=== PATIENT | male | born 1950 | race Hispanic/Latino ===

== ENCOUNTER 2020-09-03 08:35 | Inpatient (IN) | payer OTHER ==
[2020-09-03] VITALS (8 sets, daily range): BP systolic 122–138; BP diastolic 77–89
[~2020-09-03] VITALS: Ht 167.6 cm; Wt 68.9 kg
[2020-09-03] MEDS ORDERED: ASPIRIN 325 MG TABLET ONE (09:01)
[2020-09-03 09:41] LABS: BASOPHILS % (AUTO) 0.2 % (0.0-5.0); EOSINOPHILS % (AUTO) 1.8 % (0.0-8.0); HEMATOCRIT 40.9 % (42-54); LYMPHOCYTES % (AUTO) 17.9 % (21.0-51.0); MEAN CORPUSCULAR HEMOGLOBIN 30.8 pg (27.0-33.0); MEAN CORPUSCULAR HGB CONC 33.7 g/dL (32.0-36.0); MEAN CORPUSCULAR VOLUME 91.3 fL (79-99); MONOCYTES % (AUTO) 6.7 % (3.0-13.0); NEUTROPHILS % (AUTO) 72.9 % (40.0-77.0); PLATELET COUNT (AUTO) 194 K/uL (130-400); RED BLOOD CELL COUNT(AUTO) 4.48 MIL/uL (4.50-6.20); RED CELL DISTRIBUTION WIDTH 12.8 % (11.0-15.5); WHITE BLOOD COUNT (AUTO) 4.4 K/uL (4.8-10.8)
[2020-09-03] MEDS ORDERED: NITROGLYCERIN 50 MG/D5% WATER 1 BOT ONE (09:43)
[2020-09-03 09:50] LABS: ALBUMIN 3.8 g/dL (3.5-5.0); BILIRUBIN,TOTAL 0.9 mg/dL (0.2-1.0); POTASSIUM 4.1 mmol/L (3.5-5.1); TOTAL PROTEIN, SERUM 6.9 g/dL (6.0-8.3)
[2020-09-03 09:56] LABS: INR 1.01 (0.85-1.15); PROTHROMBIN TIME 10.8 SEC (9.6-11.6)
[2020-09-03 09:57] LABS: PARTIAL THROMBOPLASTIN TIME 28.2 SEC (26.3-35.5)
[2020-09-03 10:21] LABS: CREATININE 0.9 mg/dL (0.5-1.5)
[2020-09-03] MEDS ORDERED: ACETAMINOPHEN 325 MG TAB PO PRN (11:00)
[2020-09-03] MEDS ORDERED: NITROGLYCERIN 0.4 MG SL TAB SL PRN (11:00)
[2020-09-03] MEDS ORDERED: LACTULOSE 20 GM/30 ML UDCUP PO PRN (11:00)
[2020-09-03] MEDS ORDERED: ONDANSETRON HCL 4 MG/2 ML VIAL IV PRN (11:00)
[2020-09-03] MEDS ORDERED: HYDROCODONE/ACETAMINOPHEN 5/325 MG TAB PO PRN (11:00)
[2020-09-03 11:23] LABS: THYROID STIMULATING HORMONE 2.02 uIU/mL (0.36-3.74)
[2020-09-03] MEDS ORDERED: METHYLPREDNISOLONE SOD SUCC 125MG/2ML VIAL ONE (12:36)
[2020-09-03] MEDS ORDERED: DiphenhydrAMINE HCL 50 MG/ML VIAL ONE (12:36)
[2020-09-03] MEDS ORDERED: SODIUM BICARB 50MEQ 50ML VIAL 50 ML ONE (12:38)
[2020-09-03] MEDS ORDERED: LIDOCAINE HCL 2% 20ML ONE (12:38)
[2020-09-03] MEDS ORDERED: IOHEXOL 350 MG/ML 100ML INFUS..BTL IV ONE (12:38)
[2020-09-03] MEDS ORDERED: NITROGLYCERIN 2 MG/VIAL VIAL IV ONE (12:38)
[2020-09-03] MEDS ORDERED: HEPARIN SODIUM 1000UNIT/ML 10ML VIAL ONE (12:38)
[2020-09-03] MEDS ORDERED: MIDAZOLAM HCL 1 MG/ML 2ML VIAL ONE ×2 (12:38→13:00)
[2020-09-03] MEDS ORDERED: IOHEXOL-350 50ML VIAL IV ONE (12:38)
[2020-09-03] MEDS ORDERED: MEPERIDINE-PF 25 MG/ML SYG ONE ×2 (12:38→13:01)
[2020-09-03] MEDS ORDERED: TICAGRELOR 90 MG TABLET ONE (13:43)
[2020-09-03] MEDS ORDERED: MORPHINE SULFATE 2 MG/ML 1ML SYG IV PRN (14:00)
[2020-09-03] MEDS: SODIUM CHLORIDE 0.9% 1000ML 1,000 ML IV SCH (14:32)
[2020-09-03] MEDS: ALPRAZOLAM 0.5 MG TABLET PO SCH ×2 (14:38→21:26)
[2020-09-03] MEDS ORDERED: VIT1CAPS47 PO (17:33)
[2020-09-03] MEDS ORDERED: ASPI-1443 PO (17:33)
[2020-09-03] MEDS ORDERED: DILT30TA3 PO (17:33)
[2020-09-03] MEDS ORDERED: ISOS60TA4 PO (17:33)
[2020-09-03] MEDS ORDERED: OMEP20CA12 PO (17:33)
[2020-09-03] MEDS ORDERED: ALPR0.255 PO (17:33)
[2020-09-03] MEDS ORDERED: METO-408 PO (17:33)
[2020-09-03] MEDS ORDERED: RANEXA PO (17:33)
[2020-09-03] MEDS ORDERED: TICA90TA PO (17:33)
[2020-09-03] MEDS ORDERED: ATOR40TA71 PO (17:33)
[2020-09-03] MEDS ORDERED: ATORVASTATIN CALCIUM 20 MG TABLET PO SCH (21:00)
[2020-09-03] MEDS ORDERED: METOPROLOL TARTRATE 25 MG TAB PO SCH (21:00)
[2020-09-03] MEDS: FAMOTIDINE/PF 20 MG/2 ML VIAL IV SCH (21:25)
[2020-09-03] MEDS: METOPROLOL TARTRATE 25 MG TAB PO SCH (21:26)
[2020-09-03] MEDS: RANOLAZINE 500 MG TAB.SR.12H PO SCH (21:26)
[2020-09-03] MEDS: TICAGRELOR 90 MG TABLET PO SCH (21:27)
[2020-09-04] VITALS: BP 140/79
[2020-09-04] MEDS: SODIUM CHLORIDE 0.9% 1000ML 1,000 ML IV SCH (00:44)
[2020-09-04 05:15] VITALS: BP 123/75
[2020-09-04 05:37] LABS: EOSINOPHILS % (AUTO) 1.5 % (0.0-8.0); HEMATOCRIT 36.5 % (42-54); LYMPHOCYTES % (AUTO) 9.8 % (21.0-51.0); MEAN CORPUSCULAR HEMOGLOBIN 30.4 pg (27.0-33.0); MEAN CORPUSCULAR HGB CONC 33.4 g/dL (32.0-36.0); MONOCYTES % (AUTO) 3.5 % (3.0-13.0); PLATELET COUNT (AUTO) 187 K/uL (130-400); RED BLOOD CELL COUNT(AUTO) 4.01 MIL/uL (4.50-6.20); RED CELL DISTRIBUTION WIDTH 12.7 % (11.0-15.5); WHITE BLOOD COUNT (AUTO) 5.4 K/uL (4.8-10.8)
[2020-09-04 06:04] LABS: ALBUMIN 3.3 g/dL (3.5-5.0); BILIRUBIN,TOTAL 0.5 mg/dL (0.2-1.0); CREATININE 0.8 mg/dL (0.5-1.5); POTASSIUM 3.7 mmol/L (3.5-5.1); TOTAL PROTEIN, SERUM 6.5 g/dL (6.0-8.3)
[2020-09-04 08:00] VITALS: BP 147/79
[2020-09-04] MEDS ORDERED: PANTOPRAZOLE SODIUM 40 MG TABLET.DR PO SCH (09:00)
[2020-09-04] MEDS ORDERED: ASPIRIN 81MG TAB.CHEW PO SCH (09:00)
[2020-09-04] MEDS ORDERED: ENOXAPARIN SODIUM 30 MG/0.3 ML SQ SCH (09:00)
[2020-09-04] MEDS ORDERED: ISOSORBIDE MONO 30MG TAB SR PO SCH (09:00)
[2020-09-04] MEDS: TICAGRELOR 90 MG TABLET PO SCH (09:49)
[2020-09-04] MEDS: RANOLAZINE 500 MG TAB.SR.12H PO SCH (09:49)
[2020-09-04] MEDS: FAMOTIDINE/PF 20 MG/2 ML VIAL IV SCH (09:49)
[2020-09-04] MEDS: ALPRAZOLAM 0.5 MG TABLET PO SCH (09:49)
[2020-09-04] MEDS: METOPROLOL TARTRATE 25 MG TAB PO SCH (09:49)
[2020-09-04 11:26] VITALS: BP 133/93
== END 2020-09-04 12:56 | disposition home or self-care (01) | DRG 287 ==
LOC: EDH 08:35 → EDHIP 10:49 → 4CH 14:08
PROVIDERS: ADMIT Internal Medicine; ATTEND Internal Medicine
PROC: 4A023N7 Measurement of Cardiac Sampling and Pressure, Left Heart, Percutaneous Approach (ICD-10-PCS; principal; 2020-09-03)
PROC: B2151ZZ Fluoroscopy of Left Heart using Low Osmolar Contrast (ICD-10-PCS; 2020-09-03)
PROC: B2111ZZ Fluoroscopy of Multiple Coronary Arteries using Low Osmolar Contrast (ICD-10-PCS; 2020-09-03)
DX: I25.10 Atherosclerotic heart disease of native coronary artery without angina pectoris (principal); E78.5 Hyperlipidemia, unspecified; I10 Essential (primary) hypertension; Z20.828 Contact with and (suspected) exposure to other viral communicable diseases; F41.9 Anxiety disorder, unspecified; Z87.891 Personal history of nicotine dependence; Z95.5 Presence of coronary angioplasty implant and graft; Z91.041 Radiographic dye allergy status
CPT/HCPCS: 36415; 71045; 80053; 80061; 82550; 84443; 84484; 85025; 85610; 85730; 87426; 93005; 93306; 93356; 93458; 99156; 99157; C1760; C1894; G0378; J1200; J1644; J1650; J2175; J2250; J2930; J3490; Q9967; U0003